=== PATIENT | female | born 1995 | race Caucasian/White ===

== ENCOUNTER 2019-01-03 00:31 | Emergency (ER) | payer OTHER ==
[2019-01-03] MEDS ORDERED: Lidocaine 2% PF * 5 ML VIAL ONE (02:01)
--- NOTE | 2019-01-03 02:15 | ED ---
Laceration/Wound HPI - HPI Summary HPI Summary: This pt is a 23 y/o female presenting to [facility] c/o laceration to left thumb. Pt reports she was attempting to separate frozen burgers with a knife when the knife slipped and cut her left thumb. She denies any other injuries. Denies any other symptoms. Her last tetanus shot was within the last 10 years. Pt is a student at [employer]. No PMHx. No anticoagulants. - History of Current Complaint Stated Complaint: LEFT THUMB LAC Time Seen by Provider: 01/03/19 01:57 Hx Obtained From: Patient Mechanism of Injury: Sharp/Blunt Trauma - sharp Onset/Duration: Sudden Onset, Still Present Aggravating: Nothing Alleviating: Nothing Timing: Constant Current Severity: Moderate Pain Intensity: 4 Pain Scale Used: 0-10 Numeric Associated Signs & Symptoms: Negative Related Hx: Recent Trauma - Allergy/Home Medications Allergies/Adverse Reactions: Allergies Allergy/AdvReac Type Severity Reaction Status Date / Time pollen extracts Allergy Itching Verified 01/03/19 00:34 Home Medications: Home Medications NK [No Home Medications Reported] 01/03/19 [History Confirmed 01/03/19] PMH/Surg Hx/FS Hx/Imm Hx Endocrine/Hematology History: Denies: Hx Diabetes Cardiovascular History: Denies: Hx Hypertension Infectious Disease History: No Infectious Disease History: Denies: Traveled Outside the [place] in Last 30 Days - Family History Known Family History: Negative: Cardiac Disease - Social History Occupation: Student - at [employer] Alcohol Use: Occasionally Substance Use Type: Reports: None Smoking Status (MU): Never Smoked Tobacco Review of Systems Negative: Fever, Chills Negative: Chest Pain Negative: Shortness Of Breath Skin: Other - POS: laceration over left thumb All Other Systems Reviewed And Are Negative: Yes Physical Exam - Summary Physical Exam Summary: VITAL SIGNS: Reviewed. GENERAL: Patient is a well-developed and nourished female who is lying comfortable in the stretcher. Patient is not in any acute respiratory distress. HEAD AND FACE: No signs of trauma. No ecchymosis, hematomas or skull depressions. No sinus tenderness. EYES: PERRLA, EOMI x 2, No injected conjunctiva, no nystagmus. EARS: Hearing grossly intact. Ear canals and tympanic membranes are within normal limits. MOUTH: Oropharynx within normal limits. NECK: Supple, trachea is midline, no adenopathy, no JVD, no carotid bruit, no c- spine tenderness, neck with full ROM. CHEST: Symmetric, no tenderness at palpation LUNGS: Clear to auscultation bilaterally. No wheezing or crackles. CVS: Regular rate and rhythm, S1 and S2 present, no murmurs or gallops appreciated. ABDOMEN: Soft, non-tender. No signs of distention. No rebound no guarding, and no masses palpated. Bowel sounds are normal. EXTREMITIES: FROM in all major joints, no edema, no cyanosis or clubbing. NEURO: Alert and oriented x 3. No acute neurological deficits. Speech is normal and follows commands. SKIN: Dry and warm. 1.5 cm laceration over the palmar surface of the left thumb. Triage Information Reviewed: Yes Vital Signs On Initial Exam: Initial Vitals Temp Pulse Resp BP Pulse Ox 97.4 F 80 18 98/79 98 01/03/19 00:32 01/03/19 00:32 01/03/19 00:32 01/03/19 00:32 01/03/19 00:32 Vital Signs Reviewed: Yes Procedures - Laceration/Wound Repair 1 Location: upper extremity - left thumb Description: Linear Anesthesia: 2.0%, Lido Length, Depth and Shape: 1.5 cm in length Laceration/Wound Explored: clean Number of Sutures: 3 Diagnostics - Vital Signs Vital Signs Temp Pulse Resp BP Pulse Ox 01/03/19 01:49 69 99 01/03/19 01:48 70 121/70 99 01/03/19 00:32 97.4 F 80 18 98/79 98 - Laboratory Lab Statement: Any lab studies that have been ordered have been reviewed, and results considered in the medical decision making process. Laceration Repair Course/Dx - Course Assessment/Plan: Pt is a 23 y/o female who presents to the ED with laceration to left thumb. Pt reports she was attempting to separate frozen burgers with a knife when the knife slipped and cut her left thumb. She denies any other injuries. Denies any other symptoms. Her last tetanus shot was within the last 10 years. I performed a laceration repair with 2% lidocaine and placed 3 sutures. Pt tolerated the procedure well. See procedure note. Pt will be discharged home with follow up from her PCP. She is instructed to return to the ED for any new or worsening symptoms. - Clinical Impression Provider Diagnoses: Finger laceration Discharge - Sign-Out/Discharge Documenting (check all that apply): Patient Departure - discharge home Patient Received Moderate/Deep Sedation with Procedure: No - Discharge Plan Condition: Stable Disposition: HOME Patient Education Materials: Care For Your Stitches (ED), Laceration (ED) Referrals: [facility] [Outside] Additional Instructions: Please follow up with your primary care provider in 1-2 days. RETURN TO EMERGENCY DEPARTMENT FOR ANY NEW OR WORSENING SYMPTOMS. - Attestation Statements Document Initiated by Scribe: Yes Documenting Scribe: Paola Chandler Provider For Whom Scribe is Documenting (Include Credential): Heydi Reaves MD Scribe Attestation: IPaola, scribed for Heydi Reaevs MD on 01/03/19 at 0233. Status of Scribe Document: Ready
== END 2019-01-03 02:51 | disposition home or self-care (01) ==
LOC: ED 00:31
DX: S61.012A Laceration without foreign body of left thumb without damage to nail, initial encounter (principal); W26.0XXA Contact with knife, initial encounter; Y93.G1 Activity, food preparation and clean up; Y92.9 Unspecified place or not applicable
CPT/HCPCS: 12001; 99282